=== PATIENT | male | born 1985 | race Caucasian/White ===

== ENCOUNTER 2018-02-14 01:28 | Emergency (ER) | payer SELFPAY ==
[~2018-02-14] VITALS: Ht 182.9 cm; Wt 125.0 kg
[2018-02-14] MEDS ORDERED: LORazepam 1 MG TABLET PO ONE (02:30)
[2018-02-14 04:15] VITALS: BP 141/87
== END 2018-02-14 04:17 | disposition home or self-care (01) ==
LOC: EMS 01:29
DX: R00.2 Palpitations (principal); R20.0 Anesthesia of skin
CPT/HCPCS: 71046; 93005; 99284